=== PATIENT | female | born 1935 | race African-American/Black ===

== ENCOUNTER 2018-11-01 16:00 | Emergency (ER) | payer OTHER ==
[~2018-11-01] VITALS: Ht 154.9 cm; Wt 88.0 kg
[~2018-11-01 16:00] MED LIST: ACET-2178 PO; APIX2.5T PO; FAMO-135 PO; HYDR-4086 PO; SULF-288 PO
[2018-11-01] MEDS ORDERED: HYDROCODONE/ACETAMINOPHEN 5/325MG TABLET PO ONE (16:45)
[2018-11-01 17:41] VITALS: BP 110/62
== END 2018-11-01 17:42 | disposition home or self-care (01) ==
LOC: ER 16:00
DX: M54.30 Sciatica, unspecified side (principal); I48.91 Unspecified atrial fibrillation; Z79.01 Long term (current) use of anticoagulants
CPT/HCPCS: 99283